=== PATIENT | female | born 1975 | race Caucasian/White ===

== ENCOUNTER → 2020-04-27 08:19 | Outpatient (CLI) | payer SELFPAY ==
--- NOTE | 2020-04-27 08:24 | US_ITS ---
STUDY: ABDOMINAL ULTRASOUND - RIGHT UPPER QUADRANT REASON FOR VISIT: Female, 45 years old ruq/epigastric pain TECHNIQUE: Ultrasound evaluation of the right upper quadrant was performed with real-time and static king-scale imaging. TECHNICAL QUALITY: Adequate. COMPARISON: None. FINDINGS: Liver: The liver measures 11.7 cm. There is normal echogenicity of the liver. The bile ducts are within normal limits. There is hepatic color flow. The direction of portal flow is hepatopetal. There is no demonstrated mass lesion. Gallbladder: Normal distended gallbladder. The gallbladder wall measures 2 mm. There is a negative sonographic Almeida''s sign. There is no pericholecystic fluid. There are no gallstones. Common Bile Duct (C.B.D.): The common bile duct measures 4 mm. Pancreas: Normal size of the head, body and tail of the pancreas. There is normal echogenicity of the pancreas. There is no demonstrated pancreatic mass or cyst. Right Kidney: Normal size of the right kidney. The right kidney measures 9.2 cm x 4.1 cm x 3.3 cm. Normal renal cortex. The right cortex measures 1 cm. There is no demonstrated renal mass or cyst. There is an extra-renal pelvis of the right kidney. There is no distention of the renal calyces. US/Abdomen Limited IMPRESSION: Normal right upper quadrant ultrasound examination. Electronically Signed: Dennis Amaya MD at 9:30 EST , Service support ,
== END ==
PROVIDERS: PCP Family Medicine; Referring Provider Family Medicine; Visit Provider Family Medicine
DX: R10.13 Epigastric pain (principal)
CPT/HCPCS: 76705

== ENCOUNTER → 2024-06-01 | Outpatient (CLI) | payer SELFPAY ==
[2024-06-01 13:19] LABS: Estradiol 70.2 pg/mL
[2024-06-02 08:09] LABS: PROGESTERONE 1.3 ng/mL (.)
== END | disposition home or self-care (01) ==
LOC: LABSPEC 12:04
PROVIDERS: PCP Family Medicine; Referring Provider Nurse Practitioner Family; Visit Provider Nurse Practitioner Family
DX: N95.9 Unspecified menopausal and perimenopausal disorder (principal); R68.82 Decreased libido; G47.09 Other insomnia
CPT/HCPCS: 82670; 84144; 84403